=== PATIENT | male | born 1995 | race African-American/Black ===

== ENCOUNTER 2021-01-18 13:32 | Emergency (ER) | payer OTHER ==
[~2021-01-18] VITALS: Ht 175 cm; Wt 104.0 kg
[2021-01-18] MEDS ORDERED: IBUPROFEN 800 MG (MOTRIN) TAB PO ONE (14:00)
[2021-01-18] MEDS ORDERED: LACTATED RINGERS 1,000 ML IV SCH (14:00)
[2021-01-18] MEDS ORDERED: ONDANSETRON 4 MG/2 ML (SDV) Z0FRAN ONE (14:03)
--- NOTE | 2021-01-18 14:06 | ED General ---
General Chief Complaint: COVID19 Suspect/Confirmed Stated Complaint: YOST,CHILLS,BODY ACHES, LOSS OF TASTE COVID + Nursing Triage Note: pt presents to ed via pov from home with complaints of soa, cough, fever, malaise, n/v, and body aches x 5 days. pt reports he tested positive for covid 2 days ago at [facility]. pt reports he has not taken any fever reducers today. pt also states he has not been drinking much due to nausea. Source of Information: Patient Exam Limitations: No Limitations History of Present Illness Date Seen by Provider: Jan 18, 2021 Time Seen by Provider: 14:04 Initial Comments to ER by private vehicle with reports that he is Covid positive and feels worse than he has ever felt before. He has nausea shortness of breath headache and insomnia. Symptoms began 5 days ago on 01/13/2021 he tested +3 days ago on 01/15/2021. He has a BMI of 34 but is otherwise healthy. He is unvaccinated against Covid. Timing/Duration: 3-4 Days Severity: Moderate Associated Systoms: Cough, Headaches, Nausea/Vomiting Allergies and Home Medications Allergies Coded Allergies: No Known Drug Allergies (Unverified , 01/18/21) Patient Home Medication List Home Medication List Reviewed: Yes Review of Systems Review of Systems Constitutional: see HPI, chills, malaise, weakness EENTM: see HPI Respiratory: no symptoms reported Genitourinary: no symptoms reported Musculoskeletal: no symptoms reported Skin: no symptoms reported Psychiatric/Neurological: No Symptoms Reported Hematologic/Lymphatic: No Symptoms Reported Immunological/Allergic: no symptoms reported Past Iyjldxj-Bmywfp-Iogtvx Hx Patient Social History Tobacco Use?: No Substance use?: No Alcohol Use?: Yes Alcohol Frequency: Rarely Pt feels they are or have been: No Past Medical History Surgery/Hospitalization HX: sx: l knee Physical Exam Vital Signs Vital Signs - First Documented 01/18/21 13:56 Temp 39.1 Pulse 123 Resp 18 B/P (MAP) 148/96 (113) Pulse Ox 96 Capillary Refill : Less Than 3 Seconds Height, Weight, BMI Height: '" Weight: lbs. oz. kg; 33.00 BMI Method: General Appearance: No Apparent Distress, WD/WN, Other (alert and oriented no distress appears to feel poorly but nontoxic. 96% on room air tachycardia with a heart rate of 126.) Eyes: Bilateral Eye Normal Inspection, Bilateral Eye PERRL Neck: Full Range of Motion, Normal Inspection Respiratory: No Accessory Muscle Use, No Respiratory Distress Cardiovascular: Normal Peripheral Pulses, Tachycardia Gastrointestinal: Normal Bowel Sounds, Non Tender, Soft Extremity: Normal Capillary Refill, Normal Inspection Neurologic/Psychiatric: Alert, Oriented x3 Skin: Normal Color, Warm/Dry Progress/Results/Core Measures Suspected Sepsis SIRS Temperature: Pulse: 123 Respiratory Rate: 18 Laboratory Tests 01/18/21 13:58: White Blood Count 8.7 Blood Pressure 148 /96 Mean: 113 Laboratory Tests 01/18/21 13:58: Creatinine 0.88, Platelet Count 182, Total Bilirubin 0.5 Results/Orders Lab Results Laboratory Tests Test 01/18/21 13:58 Range/Units White Blood Count 8.7 4.3-11.0 10^3/uL Red Blood Count 5.29 4.30-5.52 10^6/uL Hemoglobin 15.8 13.3-17.7 g/dL Hematocrit 46 40-54 % Mean Corpuscular Volume 86 80-99 fL Mean Corpuscular Hemoglobin 30 25-34 pg Mean Corpuscular Hemoglobin Concent 35 32-36 g/dL Red Cell Distribution Width 11.9 10.0-14.5 % Platelet Count 182 130-400 10^3/uL Mean Platelet Volume 9.8 9.0-12.2 fL Immature Granulocyte % (Auto) 0 % Neutrophils (%) (Auto) 75 42-75 % Lymphocytes (%) (Auto) 20 12-44 % Monocytes (%) (Auto) 5 0-12 % Eosinophils (%) (Auto) 0 0-10 % Basophils (%) (Auto) 0 0-10 % Neutrophils # (Auto) 6.5 1.8-7.8 10^3/uL Lymphocytes # (Auto) 1.8 1.0-4.0 10^3/uL Monocytes # (Auto) 0.4 0.0-1.0 10^3/uL Eosinophils # (Auto) 0.0 0.0-0.3 10^3/uL Basophils # (Auto) 0.0 0.0-0.1 10^3/uL Immature Granulocyte # (Auto) 0.0 0.0-0.1 10^3/uL Sodium Level 135 135-145 MMOL/L Potassium Level 3.2 L 3.6-5.0 MMOL/L Chloride Level 99 98-107 MMOL/L Carbon Dioxide Level 24 21-32 MMOL/L Anion Gap 12 5-14 MMOL/L Creatinine 0.88 0.60-1.30 MG/DL Estimat Glomerular Filtration Rate 127 Glucose Level 119 H 70-105 MG/DL Calcium Level 8.7 8.5-10.1 MG/DL Corrected Calcium 8.5 8.5-10.1 MG/DL Total Bilirubin 0.5 0.1-1.0 MG/DL Alkaline Phosphatase 42 40-136 U/L C-Reactive Protein High Sensitivity 4.03 H 0.00-0.50 MG/DL Total Protein 7.6 6.4-8.2 GM/DL Albumin 4.2 3.2-4.5 GM/DL My Orders Orders - ELLA YOST APRN Covid 19 Inhouse Test (01/18/21 13:33) Lactated Ringers (Lr 1000 Ml Iv Solution (01/18/21 14:00) Ibuprofen Tablet (Motrin Tablet) (01/18/21 14:00) Cbc With Automated Diff (01/18/21 13:56) Hs C Reactive Protein (01/18/21 13:56) Comprehensive Metabolic Panel (01/18/21 13:56) Chest 1 View, Ap/Pa Only (01/18/21 13:56) Ondansetron Injection (Zofran Injectio (01/18/21 14:15) Ondansetron Injection (Zofran Injectio (01/18/21 14:03) Medications Given in ED Current Medications Medications Dose Ordered Sig/Mini Route Start Time Stop Time Status Last Admin Dose Admin Ibuprofen 800 mg ONCE ONCE PO 01/18/21 14:00 01/18/21 14:01 DC 01/18/21 14:06 800 MG Ondansetron HCl 8 mg ONCE ONCE IVP 01/18/21 14:15 01/18/21 14:16 DC 01/18/21 14:07 8 MG Vital Signs/I&O 01/18/21 13:56 Temp 39.1 Pulse 123 Resp 18 B/P (MAP) 148/96 (113) Pulse Ox 96 Capillary Refill : Less Than 3 Seconds Blood Pressure Mean: 113 Departure Communication (Admissions) [id number] discussed with him the emergency use authorization of Regeneron and the p ossibility of it helping and alternatives to treatment. He states that he is heard about this from his mother and would like to get it. Impression Primary Impression: COVID-19 Disposition: 01 HOME, SELF-CARE Condition: Stable Departure-Patient Inst. Decision time for Depature: 14:28 Referrals: NO,LOCAL PHYSICIAN (PCP/Family) Primary Care Physician Patient Instructions: COVID-19 ED Add. Discharge Instructions: 1. Hospital will call you later today or tomorrow to set up an appointment for Regeneron infusion. In the meantime Tylenol and ibuprofen for fever control, n ausea medication as needed. Rest. All discharge instructions reviewed with patient and/or family. Voiced understanding. Scripts Ondansetron (Ondansetron Odt) 8 Mg Tab.rapdis 8 MG PO Q6H PRN for NAUSEA/VOMITING, #10 TAB Prov: ELLA YOST APRN 01/18/21 ELLA YOST APRN Jan 18, 2021 14:06
[2021-01-18 14:11] LABS: BASOPHILS % (AUTO) 0 % (0-10); EOSINOPHILS % (AUTO) 0 % (0-10); HEMATOCRIT 46 % (40-54); HEMOGLOBIN 15.8 g/dL (13.3-17.7); LYMPHOCYTES # (AUTO) 1.8 10^3/uL (1.0-4.0); LYMPHOCYTES % (AUTO) 20 % (12-44); MEAN CORPUSCULAR HEMOGLOBIN 30 pg (25-34); MEAN CORPUSCULAR HGB CONC 35 g/dL (32-36); MEAN CORPUSCULAR VOLUME 86 fL (80-99); MEAN PLATELET VOLUME 9.8 fL (9.0-12.2); MONOCYTES # (AUTO) 0.4 10^3/uL (0.0-1.0); MONOCYTES % (AUTO) 5 % (0-12); NEUTROPHILS # (AUTO) 6.5 10^3/uL (1.8-7.8); NEUTROPHILS % (AUTO) 75 % (42-75); PLATELET COUNT 182 10^3/uL (130-400); WHITE BLOOD COUNT 8.7 10^3/uL (4.3-11.0)
--- NOTE | 2021-01-18 14:14 | Diagnostic Imaging Report ---
Indication: Shortness of breath and cough and fever Frontal chest obtained at 0210 p.m. There is no previous study for comparison Study is limited by very poor inspiration. The heart is normal in size. Mediastinal silhouette is unremarkable. There is some vague infiltrate in the right lateral base. Lung yeager otherwise appear unremarkable. There is no pneumothorax or pleural fluid. IMPRESSION: Study limited by very poor inspiration. There appears to be some vague infiltrate in the right lateral base. Suggest follow-up as clinically warranted. Dictated by: Dictated on workstation # [id number]
[2021-01-18] MEDS ORDERED: ONDANSETRON 4 MG/2 ML (SDV) Z0FRAN IVP ONE (14:15)
[2021-01-18 14:21] LABS: ALBUMIN 4.2 GM/DL (3.2-4.5); POTASSIUM 3.2 MMOL/L (3.6-5.0)
[2021-01-18 14:22] LABS: CALCIUM 8.7 MG/DL (8.5-10.1)
[2021-01-18 14:24] LABS: TOTAL PROTEIN 7.6 GM/DL (6.4-8.2)
[2021-01-18 14:25] LABS: BILIRUBIN,TOTAL 0.5 MG/DL (0.1-1.0)
[2021-01-18 14:27] LABS: CREATININE SERUM 0.88 MG/DL (0.60-1.30)
[2021-01-18] MEDS ORDERED: ONDA8TAB13 PO (14:30)
[2021-01-18 15:00] VITALS: BP 123/74
== END 2021-01-18 14:59 | disposition home or self-care (01) ==
LOC: ER 13:36
DX: U07.1 COVID-19 (principal)
CPT/HCPCS: 36415; 71045; 80053; 85025; 86141

== ENCOUNTER 2021-01-20 09:09 | Outpatient (CLI) | payer OTHER ==
[~2021-01-20] VITALS: Ht 175.3 cm; Wt 104.0 kg
[~2021-01-20 09:09] MED LIST: ONDA8TAB13 PO
[2021-01-20] MEDS ORDERED: EPINEPHrine INJECTION 1 MG/ML AMP IM PRN (09:15)
[2021-01-20] MEDS ORDERED: ONDANSETRON 4 MG/2 ML (SDV) Z0FRAN IV PRN (09:15)
[2021-01-20] MEDS ORDERED: diphenhydrAMINE 50 MG/ML INJ (BENADRYL) IV PRN (09:15)
[2021-01-20] MEDS ORDERED: ACETAMINOPHEN 500 MG TAB (TYLENOL) PO PRN (09:15)
[2021-01-20] MEDS ORDERED: CASIRIVIMAB/IMDEVIMAB 1,200 MG in NS (IVPB) 250 ML IV ONE (09:15)
[2021-01-20 10:22] VITALS: BP 147/88
[2021-01-20 10:26] VITALS: BP 125/78
== END 2021-01-20 11:00 | disposition home or self-care (01) ==
LOC: INFUSION 09:09
PROVIDERS: ATTEND Nurse Practitioner Family
DX: Z23 Encounter for immunization (principal); U07.1 COVID-19